=== PATIENT | female | born 1975 | race Caucasian/White ===

== ENCOUNTER → 2018-07-26 | Outpatient (CLI) | payer BC | LOC: GMATM 19:57 | PROVIDERS: ATTEND Nurse Practitioner Family | DX: J01.80 Other acute sinusitis (principal) ==

== ENCOUNTER → 2018-09-08 | Outpatient (CLI) | payer BC | LOC: GMATM 13:45 | PROVIDERS: ATTEND Family Medicine | DX: E03.9 Hypothyroidism, unspecified (principal) ==